=== PATIENT | female | born 1990 | race Caucasian/White ===

== ENCOUNTER 2017-01-23 16:47 | Emergency (ER) | payer SELFPAY ==
[~2017-01-23] VITALS: Ht 162.6 cm; Wt 54.4 kg
--- NOTE | 2017-01-23 16:47 | NUR ---
C/O LEFT LOWER BACK PAIN S/P SLIP AND FALL X2 DAYS POCK[employer]ED [employer] . - KO.
[2017-01-23] MEDS ORDERED: KETOROLAC TROMETHAMINE INJ 30 MG/ML VIAL ONE (17:51)
[2017-01-23] MEDS ORDERED: KETOROLAC TROMETHAMINE INJ 60 MG/2 ML VIAL IM ONE (18:00)
[2017-01-23] MEDS ORDERED: ACETAMINOPHEN 325 MG TABLET PO STA (18:55)
[2017-01-23] MEDS ORDERED: ACETAMINOPHEN ES 500 MG TABLET ONE (19:00)
[2017-01-23 19:17] VITALS: BP 110/71
--- NOTE | 2017-01-23 19:27 | NUR ---
GAVE REPORT TO BOBY FOR ALYCE
--- NOTE | 2017-01-23 19:49 | NUR ---
Patient discharged to home in stable condition. Written and verbal after care instructions given. Patient verbalizes understanding of instruction. Ambulatory with a steady gait
== END 2017-01-23 19:50 | disposition home or self-care (01) ==
LOC: ER 16:50
DX: M54.42 Lumbago with sciatica, left side (principal); F17.200 Nicotine dependence, unspecified, uncomplicated; N83.209 Unspecified ovarian cyst, unspecified side
CPT/HCPCS: 72100; 96372; 99284; A4606; J1885; Z7610